=== PATIENT | female | born 1980 | race Asian ===

== ENCOUNTER → 2016-11-07 | Outpatient (REF) | payer BC | LOC: M LAB REF 10:02 | PROVIDERS: ATTEND Ophthalmology | DX: H10.32 Unspecified acute conjunctivitis, left eye (principal) ==

== ENCOUNTER → 2017-10-01 | Outpatient (REF) | payer BC | LOC: M LAB REF 17:31 | DX: R05 Cough (principal); R68.83 Chills (without fever) ==

== ENCOUNTER → 2017-10-25 | Outpatient (REF) | payer BC | LOC: M LAB REF 16:37 | DX: J02.9 Acute pharyngitis, unspecified (principal) | CPT/HCPCS: 87430 ==

== ENCOUNTER → 2018-09-17 | Outpatient (REF) ==
[2018-09-18 09:40] LABS: RUBELLA IgG QUALITATIVE IMMUNE (IMMUNE)
[2018-09-19 08:17] LABS: RUBEOLA IgG ANTIBODY >300.0 AU/mL (Immune >29.9)
== END ==
LOC: M LAB REF 17:37
PROVIDERS: ATTEND Pediatrics Pediatric Infectious Diseases
DX: Z00.00 Encounter for general adult medical examination without abnormal findings (principal)

== ENCOUNTER → 2019-02-14 | Outpatient (REF) | payer BC ==
[2019-02-14 16:07] LABS: ALBUMIN 4.1 GM/DL (3.2-5.2); ALT/SGPT 36 U/L (12-78); BASO # 0.1 10^3/uL (0.0-0.2); BASO % 0.7 % (0.0-1.0); BILIRUBIN,TOTAL 0.2 MG/DL (0.2-1.0); BLOOD UREA NITROGEN 10 MG/DL (7-18); CALCIUM LEVEL 8.9 MG/DL (8.5-10.1); CARBON DIOXIDE LEVEL 23 MEQ/L (21-32); CHLORIDE LEVEL 106 MEQ/L (98-107); CREATININE FOR GFR 0.63 MG/DL (0.55-1.30); EOS # 0.2 10^3/uL (0.0-0.50); EOS % 2.2 % (0.0-3.0); GLOMERULAR FILTRATION RATE > 60.0 (>58); GLUCOSE, FASTING 90 MG/DL (70-100); HEMATOCRIT 40.8 % (36.0-47.0); HEMOGLOBIN 12.8 g/dl (12.0-15.5); LYMPH # 2.6 10^3/uL (1.5-4.5); MEAN CORPUSCULAR HGB CONC 31.4 g/dl (32.0-36.5); MEAN CORPUSCULAR VOLUME 86.1 fl (80.0-96.0); MONO # 0.8 10^3/uL (0.0-0.8); MONO % 11.2 % (0.0-5.0); NEUTROPHILS # 3.2 10^3/uL (1.8-7.7); NEUTROPHILS % 47.5 % (36.0-66.0); PLATELET COUNT, AUTOMATED 319 10^3/uL (150-450); POTASSIUM SERUM 4.3 MEQ/L (3.5-5.1); RED BLOOD COUNT 4.74 10^6/uL (4.00-5.40); SODIUM LEVEL 140 MEQ/L (136-145); TOTAL PROTEIN 7.4 GM/DL (6.4-8.2); WHITE BLOOD COUNT 6.8 10^3/uL (4.0-10.0)
== END ==
LOC: M LABDRAW1 15:23
PROVIDERS: ATTEND Internal Medicine Infectious Disease
DX: R76.11 Nonspecific reaction to tuberculin skin test without active tuberculosis (principal)